=== PATIENT | male | born 1980 | race Two or more races ===

== ENCOUNTER 2022-06-09 15:52 | Emergency (ER) | payer OTHER ==
[~2022-06-09] VITALS: Ht 172.7 cm; Wt 111.3 kg
[2022-06-09] MEDS ORDERED: CEPH-509 PO (16:31)
[2022-06-09 16:49] VITALS: BP 141/90
== END 2022-06-09 17:01 | disposition home or self-care (01) ==
LOC: ER 15:52
DX: S60.562A Insect bite (nonvenomous) of left hand, initial encounter (principal); E78.5 Hyperlipidemia, unspecified; Z79.899 Other long term (current) drug therapy; W57.XXXA Bitten or stung by nonvenomous insect and other nonvenomous arthropods, initial encounter; Y93.89 Activity, other specified; Y92.89 Other specified places as the place of occurrence of the external cause; Y99.8 Other external cause status